=== PATIENT | male | born 1990 | race Caucasian/White ===

== ENCOUNTER 2017-08-09 15:07 | Emergency (ER) | payer SELFPAY ==
[~2017-08-09] VITALS: Ht 180.3 cm; Wt 89.4 kg
--- OUTSIDE RECORDS SUMMARY | 2017-08-09 15:30 | XMS REPORT | Continuity of Care Document ---
Author Author [facility] Organization [facility] Address Unknown Phone Unavailable Allergies There is no data. Medications There is no data. Problems There is no data. Procedures There is no data. Results There is no data. Encounters ACCT No. Visit Date/Time Discharge Status Pt. Type Provider Facility Loc./Unit Complaint [id number] 06/19/2016 15:55:26 06/19/2016 23:59:59 CLS Outpatient Eric Ceballos
--- OUTSIDE RECORDS SUMMARY | 2017-08-09 15:30 | XMS REPORT ---
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 Medications Active Name Start Date Estimated Completion Date SIG Comments Tamiflu 75 mg oral capsule 06/19/2016 06/29/2016 take 1 capsule (75 mg) by oral route 2 times per day for 10 days Problem List Not available. Vital Signs Date Time BP-Sys(mm[Hg] BP-Wanda(mm[Hg]) HR(bpm) RR(rpm) Temp WT HT HC BMI BSA BMI Percentile O2 Sat(%) 06/19/2016 3:26:00 PM 124 mmHg 84 mmHg 102 bpm 20 rpm 99.8 F 181 lbs 71 in 25.24 kg/m2 2.03 m2 97 % Social History Name Description Comments Tobacco Never smoker History of Procedures Date Ordered Description Order Status 06/19/2016 12:00 AM INFLUENZA A/B AG EIA Returned Results Summary Not available. History Of Immunizations Not available. History of Past Illness Name Date of Onset Comments Fever Jun 19 2016 3:28PM Flu-like symptoms Jun 19 2016 3:28PM Influenza B Jun 19 2016 3:28PM Payers Insurance Name Company Name Plan Name Plan Number Policy Number Policy Group Number Start Date [facility] [id number] December History of Encounters Visit Date Visit Type Provider 06/19/2016 Office visit Eric Ceballos NP
[2017-08-09] MEDS ORDERED: CLARTIN (17:28)
--- NOTE | 2017-08-09 17:31 | ED Chest Pain ---
General Chief Complaint: Chest Wall/Rib Pain Stated Complaint: CP Source: patient Exam Limitations: no limitations History of Present Illness Date Seen by Provider: Aug 09, 2017 Time Seen by Provider: 17:29 Initial Comments To ER with central chest pain intermittently over the past 3 weeks. Pain is worsened by deep breathing and certain movements. This initially came about around 3 weeks ago and it lasted for about a week and went away. He's been under stress related to finding a new place to live with his girlfriend and finances. The pain then came back today much worse. He does not smoke. No unilateral leg swelling. No history of this. No known family history of heart disease. Timing/Duration: getting worse, intermittent Severity/Quality: moderate Location: central Activities at Onset: none ASA po BUNDLE SHAKER: No NTG SL BUNDLE SHAKER: No Allergies and Home Medications Allergies Coded Allergies: No Known Drug Allergies (Unverified , 08/09/17) Patient Home Medication List Home Medication List Reviewed: Yes Review of Systems Constitutional: see HPI EENTM: No Symptoms Reported Respiratory: See HPI, Cough Cardiovascular: See HPI, Chest Pain Gastrointestinal: No Symptoms Reported Musculoskeletal: no symptoms reported Skin: no symptoms reported Psychiatric/Neurological: No Symptoms Reported Past Legjbdp-Jbvboc-Wzeuyu Hx Patient Social History Alcohol Use: Occasionally Uses Recreational Drug Use: No Smoking Status: Never a Smoker Recent Foreign Travel: No Contact w/Someone Who Travel: No Surgeries History of Surgeries: Yes (SPLEEN ) Cardiovascular History of Cardiac Disorders: No Neurological History of Neurological Disord: No Genitourinary History of Genitourinary Disor: No Gastrointestinal History of Gastrointestinal Di: No Musculoskeletal History of Musculoskeletal Dis: No Endocrine History of Endocrine Disorders: No HEENT History of HEENT Disorders: No Cancer History of Cancer: No Psychosocial History of Psychiatric Problem: No Physical Exam Vital Signs Vital Signs - First Documented 08/09/17 08/09/17 17:01 18:53 Temp 97.2 Pulse 67 Resp 18 B/P (MAP) 147/98 Pulse Ox 98 O2 Delivery Room Air Capillary Refill : General Appearance: No Apparent Distress, WD/WN HEENT: PERRL/EOMI, TMs Normal Neck: Full Range of Motion, Normal Inspection Respiratory: Normal Breath Sounds, No Accessory Muscle Use, No Respiratory Distress Cardiovascular: Regular Rate, Rhythm, Normal Peripheral Pulses Gastrointestinal: Normal Bowel Sounds, Non Tender, Soft Extremity: Normal Capillary Refill, Normal Inspection Neurologic/Psychiatric: Alert, Oriented x3, No Motor/Sensory Deficits Skin: Normal Color, Warm/Dry Progress/Results/Core Measures Results/Orders Lab Results Laboratory Tests Test 08/09/17 18:02 Range/Units White Blood Count 7.3 4.3-11.0 10^3/uL Red Blood Count 4.92 4.35-5.85 10^6/uL Hemoglobin 15.5 13.3-17.7 G/DL Hematocrit 44 40-54 % Mean Corpuscular Volume 90 80-99 FL Mean Corpuscular Hemoglobin 32 25-34 PG Mean Corpuscular Hemoglobin Concent 35 32-36 G/DL Red Cell Distribution Width 14.1 10.0-14.5 % Platelet Count 270 130-400 10^3/uL Mean Platelet Volume 11.4 H 7.4-10.4 FL Neutrophils (%) (Auto) 50 42-75 % Lymphocytes (%) (Auto) 40 12-44 % Monocytes (%) (Auto) 8 0-12 % Eosinophils (%) (Auto) 2 0-10 % Basophils (%) (Auto) 0 0-10 % Neutrophils # (Auto) 3.7 1.8-7.8 X 10^3 Lymphocytes # (Auto) 2.9 1.0-4.0 X 10^3 Monocytes # (Auto) 0.6 0.0-1.0 X 10^3 Eosinophils # (Auto) 0.1 0.0-0.3 10^3/uL Basophils # (Auto) 0.0 0.0-0.1 10^3/uL Troponin I < 0.30 <0.30 NG/ML My Orders Orders - DAYANA WALLS APRN Ekg Tracing (08/09/17 17:22) Chest 1 View, Ap/Pa Only (08/09/17 17:22) Cbc With Automated Diff (08/09/17 17:22) Troponin I (08/09/17 17:22) Ibuprofen Tablet (Motrin Tablet) (08/09/17 17:45) Vital Signs/I&O Vital Sign - Last 12Hours 08/09/17 08/09/17 17:01 18:53 Temp 97.2 Pulse 67 64 Resp 18 18 B/P (MAP) 147/98 Pulse Ox 98 99 O2 Delivery Room Air Departure Impression Impression: Primary Impression: Pleuritic chest pain Disposition: HOME, SELF-CARE Condition: Stable Departure-Patient Inst. Decision time for Depature: 17:31 Referrals: NO,LOCAL PHYSICIAN (PCP) Primary Care Physician Patient Instructions: Pleuritic Chest Pain (DC) Add. Discharge Instructions: 1. Use Tylenol and Motrin for pain control 2. Follow-up with your regular doctor later this week for recheck if no improvement. Return to ER for any worsening. All discharge instructions reviewed with patient and/or family. Voiced understanding. DAYANA WALLS MANUFACTURING PRODUCTION MANAGER Aug 09, 2017 17:31
[2017-08-09] MEDS ORDERED: IBUPROFEN 800 MG (MOTRIN) TAB PO ONE (17:45)
--- NOTE | 2017-08-09 18:07 | Diagnostic Imaging Report ---
INDICATION: Chest pain. COMPARISON STUDY: None. FINDINGS: Frontal view of the chest demonstrates the lungs to be clear. The heart, mediastinum, pulmonary vascularity, and visualized bony thorax are normal. IMPRESSION: Negative chest. Dictated by: Dictated on workstation # [id number]
[2017-08-09 18:09] LABS: BASOPHILS % (AUTO) 0 % (0-10); EOSINOPHILS # (AUTO) 0.1 10^3/uL (0.0-0.3); EOSINOPHILS % (AUTO) 2 % (0-10); HEMATOCRIT 44 % (40-54); HEMOGLOBIN 15.5 G/DL (13.3-17.7); LYMPHOCYTES # (AUTO) 2.9 X 10^3 (1.0-4.0); LYMPHOCYTES % (AUTO) 40 % (12-44); MEAN CORPUSCULAR HEMOGLOBIN 32 PG (25-34); MEAN CORPUSCULAR HGB CONC 35 G/DL (32-36); MEAN CORPUSCULAR VOLUME 90 FL (80-99); MEAN PLATELET VOLUME 11.4 FL (7.4-10.4); MONOCYTES # (AUTO) 0.6 X 10^3 (0.0-1.0); MONOCYTES % (AUTO) 8 % (0-12); NEUTROPHILS # (AUTO) 3.7 X 10^3 (1.8-7.8); NEUTROPHILS % (AUTO) 50 % (42-75); PLATELET COUNT 270 10^3/uL (130-400); RED BLOOD COUNT 4.92 10^6/uL (4.35-5.85); RED CELL DISTRIBUTION WIDTH 14.1 % (10.0-14.5); WHITE BLOOD COUNT 7.3 10^3/uL (4.3-11.0)
[2017-08-09 18:53] VITALS: BP 147/98
== END 2017-08-09 18:53 | disposition home or self-care (01) ==
LOC: ER 15:10
DX: R07.81 Pleurodynia (principal)
CPT/HCPCS: 36415; 71045; 84484; 85025; 93005